=== PATIENT | male | born 1935 | race Two or more races ===

== ENCOUNTER 2018-01-31 08:31 | Emergency (ER) | payer OTHER ==
[~2018-01-31] VITALS: Ht 177.8 cm; Wt 86.6 kg
--- NOTE | 2018-01-31 08:31 | NUR ---
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 SECOND IV ACCESS STARTED. ACCUCHECK DONE. AT BS FOR EVAL. PT AWAKE, ALERT TO SELF, NOTED APHASIC. ABLE TO FOLLOW MINIMAL COMMANDS. VSS. SAFETY MEASURES PROVIDED. CODE STROKE CALLED. WILL MONITOR.
--- NOTE | 2018-01-31 08:32 | NUR ---
PT WENT TO CT SCAN.
[2018-01-31] MEDS ORDERED: IOHEXOL-350 100 ML VIAL IV ONE (08:37)
[2018-01-31] MEDS ORDERED: IV NS 0.9% 250 ML IV ONE (08:37)
--- NOTE | 2018-01-31 08:49 | NUR ---
PT IS BACKL FROM CT SCAN.
--- NOTE | 2018-01-31 08:55 | NUR ---
AT TO DISCUSS POC WITH PT'S .
[2018-01-31 09:03] LABS: BASOPHILS % (AUTO) 0.1 % (0.0-2.0); EOSINOPHILS % (AUTO) 0.5 % (0.0-6.0); HEMATOCRIT 31 % (39-51); HEMOGLOBIN 10.6 g/dL (13.5-17.5); LYMPHOCYTES # (AUTO) 0.7 /CMM (0.8-4.8); MEAN CORPUSCULAR HGB CONC 35 g/dl (31.0-36.0); MEAN CORPUSCULAR VOLUME 88 fL (80-96); MONOCYTES # (AUTO) 0.2 /CMM (0.1-1.30); MONOCYTES % (AUTO) 4.1 % (2.0-12.0); NEUTROPHILS # (AUTO) 5.1 /CMM (1.8-8.9); NEUTROPHILS % (AUTO) 84.3 % (43.0-81.0); PLATELET COUNT (AUTO) 207 /CMM (150-450); RDW COEFFICIENT OF VARIATION 12.9 (11.5-15.0); RED BLOOD CELL COUNT(AUTO) 3.49 MIL/uL (4.5-6.0); WHITE BLOOD COUNT (AUTO) 6.1 K/uL (4.3-11.0)
[2018-01-31] MEDS ORDERED: AMLO10TA6 PO (09:11)
[2018-01-31] MEDS ORDERED: CHOL200026 PO (09:11)
[2018-01-31] MEDS ORDERED: ASPI-1169 PO (09:11)
[2018-01-31] MEDS ORDERED: LISI-603 PO (09:11)
[2018-01-31] MEDS ORDERED: FAMO20TA8 PO (09:11)
[2018-01-31] MEDS ORDERED: EZET10TA14 PO (09:11)
[2018-01-31] MEDS ORDERED: TRAZ-214 PO (09:11)
[2018-01-31] MEDS ORDERED: WARF1TAB47 PO (09:11)
[2018-01-31] MEDS ORDERED: ATOR80TA PO (09:11)
[2018-01-31] MEDS ORDERED: ATEN25TA PO (09:11)
[2018-01-31 09:13] LABS: CALCIUM, SERUM 8.4 mg/dL (8.5-10.1); CARBON DIOXIDE 23 mmol/L (21-32); CHLORIDE 103 mmol/L (98-107); CREATININE 2.1 mg/dL (0.6-1.3); GLUCOSE 229 mg/dL (74-106); POTASSIUM 4.6 mmol/L (3.5-5.1); SODIUM SERUM 135 mmol/L (136-145); UREA NITROGEN, BLOOD 36 mg/dL (7-18)
--- NOTE | 2018-01-31 09:15 | NUR ---
Patient is resting comfortably in bed. Easily aroused. VSS. remains at bs.
[2018-01-31 09:16] LABS: INR 2.93 (0.87-1.13)
[2018-01-31 09:17] LABS: CHOLESTEROL 145 mg/dL (<200); HDL CHOLESTEROL 43 mg/dL (40-60); LDL 85 mg/dL (0-99); TRIGLYCERIDES 103 mg/dL (30-150)
[2018-01-31 09:19] LABS: ALANINE AMINOTRANSFERASE 29 U/L (12-78); ALBUMIN 3.3 g/dL (3.4-5.0); ALKALINE PHOSPHATASE 71 U/L (46-116); ASPARTATE AMINOTRANSFERASE 17 U/L (15-37); BILIRUBIN,DIRECT 0.1 mg/dL (0.0-0.2); BILIRUBIN,TOTAL 0.5 mg/dL (0.2-1.0); TOTAL PROTEIN, SERUM 6.2 g/dL (6.4-8.2)
[2018-01-31 09:21] LABS: TROPONIN I < 0.017 ng/mL (0.00-0.056)
[2018-01-31] MEDS ORDERED: IV NS 0.9% 1,000 ML BAG IV ONE (09:30)
--- NOTE | 2018-01-31 10:05 | NUR ---
CALLED [facility] [phone] SPOKE WITH MARCIE GAVE VS
[2018-01-31 10:28] LABS: APPEARANCE,URINE CLEAR (CLEAR); BILIRUBIN,URINE NEGATIVE (NEGATIVE); BLOOD, URINE TRACE-INTA Ery/uL (NEGATIVE); COLOR,URINE YELLOW (YELLOW); KETONES,URINE NEGATIVE (NEGATIVE); LEUKOCYTE ESTERASE ,URINE NEGATIVE (NEGATIVE); NITRITE, URINE NEGATIVE (NEGATIVE); PROTEIN,URINE 2+ mg/dl (NEGATIVE); UGLUCOSE NEGATIVE (NEGATIVE); UROBILINOGEN,URINE 0.2 EU/dL (0.2)
[2018-01-31 10:40] VITALS: BP 151/74
--- NOTE | 2018-01-31 10:46 | NUR ---
call back from marcela elizabeth, accepted by dr molina at [facility],report to be called at [phone], [facility] eta at [id number](CCRN)
[2018-01-31 10:48] LABS: BACTERIA,URINE Rare /HPF (None Seen); SQUAMOUS EPITHELIAL CELL,UR Rare /HPF (None Seen)
--- NOTE | 2018-01-31 11:00 | NUR ---
REPORT GIVEN EMT TRANSPORT.
== END 2018-01-31 12:18 | disposition short-term general hospital (02) ==
LOC: ER 08:33
DX: I63.9 Cerebral infarction, unspecified (principal); N17.9 Acute kidney failure, unspecified; R73.9 Hyperglycemia, unspecified; D64.9 Anemia, unspecified; R51 Headache; E78.00 Pure hypercholesterolemia, unspecified; I10 Essential (primary) hypertension; Z79.01 Long term (current) use of anticoagulants; Z79.82 Long term (current) use of aspirin; Z95.1 Presence of aortocoronary bypass graft
CPT/HCPCS: 36415; 70450-TC; 70496-TC; 70498-TC; 71045-TC; 80048-TC; 80061-TC; 80076-TC; 80305; 81000-TC; 83605-TC; 84484-TC; 85025-TC; 85730-TC; 86850-TC; A4606; J7030; J7050; Q9967; Z7610